=== PATIENT | female | born 2000 | race Caucasian/White ===

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

== ENCOUNTER 2020-04-13 12:57 | Emergency (ER) | payer MEDICAID ==
[~2020-04-13] VITALS: Ht 165.1 cm; Wt 69.0 kg
[2020-04-13 14:33] VITALS: BP 95/63
== END 2020-04-13 14:47 | disposition home or self-care (01) ==
LOC: ER 12:57
DX: B34.9 Viral infection, unspecified (principal)
CPT/HCPCS: 71045; 99283